=== PATIENT | male | born 1965 | race Caucasian/White ===

== ENCOUNTER 2017-10-20 18:31 | Emergency (ER) | payer SELFPAY ==
--- NOTE | 2017-10-20 18:43 | ED Physician Documentation ---
General Adult - HPI Chief Complaint: General Adult Additional Information: 51-year-old white male who states he knew he started eating some shrimp. Within approximately five minutes after eating some shrimp is started getting some itching in his throat. Patient stated he then developed some lives in itching to the facial area available to the truckal area. Patient subsequently came into the emergency room for evaluation. Patient denied that he said any previous allergic reactions. Patient denies any breathing difficulties with the time. Onset: minutes (15) Timing: still present (improved) Further Comments: yes (Cre transfered to Dr Cuello at 19:00) - ROS CONST: no problems. denies: fever, chills - PAST HX Past History: hypertension, other (CAD) Other History: diabetes Type 2 Surgeries/Procedures: other (CABG x3) Immunizations: referred to PCP - SOCIAL HX Smoking History: non-smoker, quit greater than 1 year (2002) Alcohol Use: other (6-12 pack on Thursday) Drug Use: none - FAMILY HX Family History: Yes (mother CAD, HTN) - VITAL SIGNS Vital Signs: Vital Signs Temp Pulse Resp BP Pulse Ox 122/62 01/20/16 17:56 - REVIEWED ASSESSMENTS Nursing Assessment Reviewed: Yes Vitals Reviewed: Yes <Sarthak Galeana - Last Filed: 10/20/17 18:39> - VITAL SIGNS Vital Signs: Vital Signs Temp Pulse Resp BP Pulse Ox 86 16 168/95 93 10/20/17 19:16 10/20/17 19:16 10/20/17 19:47 10/20/17 18:35 <Guerrero Inman - Last Filed: 10/20/17 20:01> - PAST HX Allergies/Adverse Reactions: Allergies Allergy/AdvReac Type Severity Reaction Status Date / Time No Known Drug Allergies Allergy Verified 10/20/17 18:40 Home Medications: Ambulatory Orders Medication Instructions Recorded Aspirin [Amada] 81 mg PO D 01/20/16 Metoprolol Tartrate [Lopressor] 25 mg PO D 01/20/16 Thyroid,Pork [Nature-Throid] 65 mg PO D 01/20/16 Progress - Progress Progress: Benadryl 50 mg IV in ER Sx improved/resolved Benadryl 25 mg, 4 tablets --> home. Sig 1-2 q 4-6 h prn Pt will also buy OTC Benadryl tonight or in the am. Pt prefers not to take steroids, which will increase his glucose. Pt with DM. <Guerrero Inman - Last Filed: 10/20/17 20:01> ED Results Lab/Radiology - Lab Results Lab Results: Lab Results 10/20/17 10/20/17 18:55 18:55 WBC 8.00 K/ul K/ul (4.00-12.00) RBC 5.14 M/ul M/ul (3.90-5.20) Hgb 16.3 g/dL g/dL (12.0-18.0) Hct 45.9 % % (37.0-53.0) MCV 89.3 fl fl (80.0-100.0) MCH 31.6 pg pg (28.0-34.0) MCHC 35.4 g/dL g/dL (30.0-36.0) RDW 13.9 % % (11.3-14.3) Plt Count 179 K/mm3 K/mm3 (130-400) Neut % (Auto) 60.0 % % (39.0-79.0) Lymph % (Auto) 31.1 % % (16.0-50.0) [place] % (Auto) 3.6 % % (0.0-11.0) Eos % (Auto) 1.7 % % (0.0-6.8) Baso % (Auto) 0.5 (0.0-1.5) Neut # (Auto) 4.8 # k/uL # k/uL (1.4-7.7) Lymph # (Auto) 2.5 # k/uL # k/uL (0.6-4.0) [place] # (Auto) 0.3 # k/uL # k/uL (0.0-0.9) Eos # (Auto) 0.1 # k/uL # k/uL (0.0-0.6) Baso # (Auto) 0.0 # k/uL # k/uL (0.0-0.5) Reactive Lymphs % 3.0 % % (0.0-5.0) Reactive Lymphs # 0.2 # k/uL # k/uL (0.0-0.8) Sodium 133 mmol/L L mmol/L (136-145) Potassium 4.0 mmol/L mmol/L (3.5-5.1) Chloride 98 mmol/L mmol/L (98-107) Carbon Dioxide 22 mmol/L mmol/L (22-30) BUN 22 mg/dL H mg/dL (9-20) Creatinine 0.70 mg/dL mg/dL (0.66-1.25) Estimated Creat Clear 269 Est GFR ( Amer) > 60 (60 - ) Est GFR (Non-Af Amer) > 60 (60 - ) Glucose 109 mg/dL H mg/dL (74-106) Calcium 9.4 mg/dL mg/dL (8.4-10.2) Total Bilirubin 0.3 mg/dL mg/dL (0.2-1.3) AST 47 U/L H U/L (15-46) ALT 41 U/L U/L (13-69) Alkaline Phosphatase 74 U/L U/L (38-126) Total Protein 8.4 g/dL H g/dL (6.3-8.2) Albumin 4.4 g/dL g/dL (3.5-5.0) - Orders Orders: ED Orders Category Date Time Status Place IV Lock 1T Care 10/20/17 18:50 Active CBC/PLATELET/DIFF Routine Lab 10/20/17 18:55 Completed CMP Routine Lab 10/20/17 18:55 Completed diphenhydrAMINE HCL [Benadryl] Med 10/20/17 19:40 Discontinued 100 mg PO .STK-MED ONE diphenhydrAMINE HCL [Benadryl] Med 10/20/17 18:47 Discontinued 50 mg IVP NOW ONE <Guerrero Inman - Last Filed: 10/20/17 20:01> General Adult Physical Exam - PHYSICAL EXAM GENERAL APPEARANCE: mild distress EENT: eye inspection normal, ENT inspection normal, pharynx normal, no signs of dehydration NECK: normal inspection, thyroid normal, supple. No: lymphadenopathy RESPIRATORY: no resp distress, chest non-tender, breath sounds normal. No: wheezes, rales, rhonchi CVS: reg rate & rhythm, heart sounds normal, equal pulses. No: no murmur, no gallop ABDOMEN: soft, no organomegaly, normal bowel sounds, no abdominal bruit SKIN: warm/dry, other (hives, erythema to facial area, hives to trunkal area) NEURO: oriented X3, CN's nml as tested, motor nml, sensation nml, mood/affect nml <Sarthak Galeana - Last Filed: 10/20/17 18:39> Discharge <Sarthak Galeana - Last Filed: 10/20/17 18:39> Decision to Admit: NO Decision Time: 19:45 <Guerrero Inman - Last Filed: 10/20/17 20:01> Clincal Impression: Allergic reaction (sea food, shrimp) Referrals: Laura Lopez MD [Primary Care Provider] - Condition: Good Disposition: 01 HOME, SELF-CARE
[2017-10-20] MEDS: diphenhydrAMINE HCL 50 MG/ML VIAL IVP ONE (18:56)
[2017-10-20 19:00] LABS: BASOPHILS % 0.5 (0.0-1.5); EOSINOPHILS % 1.7 % (0.0-6.8); MEAN CORPUSCULAR HEMOGLOBIN 31.6 pg (28.0-34.0); MEAN CORPUSCULAR VOLUME 89.3 fl (80.0-100.0); MONOCYTES % 3.6 % (0.0-11.0); NEUTROPHILS # 4.8 # k/uL (1.4-7.7)
[2017-10-20 19:17] VITALS: BP 168/95
[2017-10-20] MEDS ORDERED: diphenhydrAMINE HCL 25 MG TABLET PO ONE (19:40)
[2017-10-20 19:42] LABS: eGFR (Non-African) > 60
== END 2017-10-20 19:47 | disposition home or self-care (01) ==
LOC: ED 18:31
DX: L29.9 Pruritus, unspecified (principal); T78.40XA Allergy, unspecified, initial encounter; Z91.013 Allergy to seafood; Y92.9 Unspecified place or not applicable; Y93.9 Activity, unspecified; Y99.9 Unspecified external cause status
CPT/HCPCS: 80053; 85025; J1200; 96374; 99284; S1016

== ENCOUNTER 2018-02-03 17:44 | Emergency (ER) | payer SELFPAY ==
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
[2018-02-03] MEDS: 0.9 % SODIUM CHLORIDE 1,000 ML IV ONE (17:50)
[2018-02-03] MEDS: fentaNYL CITRATE/PF 100 MCG/2 ML INJ. IVP ONE ×2 (17:55→19:15)
[2018-02-03] MEDS: SILVER SULFADIAZINE 25 GM 1 APPL TUBE TP ONE (18:45)
[2018-02-04 01:48] VITALS: BP 146/92
[2018-02-04 13:12] LABS: eGFR (Non-African) > 60
[2018-02-04 13:13] LABS: BASOPHILS % 0.6 (0.0-1.5); EOSINOPHILS % 2.2 % (0.0-6.8); MEAN CORPUSCULAR HEMOGLOBIN 29.8 pg (28.0-34.0); MONOCYTES % 8.1 % (0.0-11.0); NEUTROPHILS # 3.8 # k/uL (1.4-7.7)
== END 2018-02-03 19:27 | disposition home or self-care (01) ==
LOC: SUPCPDRO 17:44 → ED 17:44
DX: T23.002A Burn of unspecified degree of left hand, unspecified site, initial encounter (principal); T22.012A Burn of unspecified degree of left forearm, initial encounter; T21.02XA Burn of unspecified degree of abdominal wall, initial encounter; T31.11 Burns involving 10-19% of body surface with 10-19% third degree burns; X08.8XXA Exposure to other specified smoke, fire and flames, initial encounter; Y93.89 Activity, other specified; Y92.9 Unspecified place or not applicable; Z79.01 Long term (current) use of anticoagulants
CPT/HCPCS: 36415; 80053; 85025; 85610; 96374; 96376; 99283; 99284; J3010; J7030; S1016